=== PATIENT | female | born 1990 ===

== ENCOUNTER 2017-12-03 18:47 | Emergency (ER) | payer SELFPAY ==
[2017-12-03 19:42] VITALS: BP 97/62; PULSE 73; RESP 16; TEMP 98.3; O2SAT 100
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
== END 2017-12-03 20:40 | disposition home or self-care (01) ==
LOC: H.ER 18:47
DX: Z48.02 Encounter for removal of sutures (principal)